=== PATIENT | female | born 1995 | race Caucasian/White ===

== ENCOUNTER 2018-04-14 12:14 | Observation (INO) ==
--- NOTE | 2018-04-14 12:26 | Emergency Department Note ---
Disposition Clinical Impression: Influenza Community acquired pneumonia Qualifiers: Laterality: unspecified laterality Qualified Code(s): J18.9 - Pneumonia, unspecified organism Disposition: Admitted As Inpatient Condition: Good Referrals: NONE,PCP [Non-Partnered Physician] - Forms: ED Satisfaction Letter SOB HPI - General Chief Complaint: ED Shortness of Breath/Dyspnea Stated Complaint: difficulty in breathing Source: patient, EMS Mode of arrival: EMS Limitations: no limitations Nursing Notes Reviewed: Yes Vital Signs Reviewed: Yes - History of Present Illness Patient presents to the ED via EMS complaining of worsening shortness of breath, cough, congestion and fever. Patient states she was originally seen here on the third for similar symptoms and was diagnosed with a URI. She was prescribed Augmentin which she has been taking. She also had some fever and chills and some chest and rib pain yesterday and returned to the ED. States that she had a chest x-ray and chest CT performed and was told she possibly had pneumonia. Her daughter was also just diagnosed with the flu so she was started on Tamiflu yesterday. She had her first dose of Tamiflu in the ER last night but has not been able to take her Augmentin her Tamiflu today because she states every time she tries to drink something she has a coughing spell and will have posttussive emesis. She is not had any vomiting outside of the coughing spells. States she has been drinking but has not been eating anything due to lack of appetite. She states she has had a fever at home doses high as 102.7 this morning taken orally. She did not take any medication for the fever but did take a cool bath. She states her cough is been dry. She denies any sore throat, nasal congestion or rhinorrhea. No abdominal pain or diarrhea. No rash. She is recently been exposed to both her daughter and niece who have the flu currently. She typically smokes a half a pack per day but states she has not smoked in the past 2 days due to her symptoms. She denies any alcohol or drug use. No chronic respiratory problems although she states she does get bronchitis frequently. - Related Data Home Medications Medication Instructions Recorded Confirmed Ibuprofen [Motrin] 800 mg PO Q8HR PRN 01/26/16 04/13/18 HYDROcodone/Acet 10/325 mg [[place] 1 tab PO Q6HR PRN 07/19/16 04/13/18 10-325 mg] SUMAtriptan succinate [Imitrex] 50 mg PO Q2H 02/11/17 04/13/18 Previous Rx's Medication Instructions Recorded Amoxicillin/Clavulanate [Augmentin] 875 mg PO BIDWM #20 tablet 04/11/18 Pseudoephedrine/Acetaminophen 1 each PO BID #20 tablet 04/11/18 [Nexafed Sinus Press-Pain Tab] Oseltamivir [Tamiflu] 75 mg PO BID #10 capsule 04/13/18 Allergies Allergy/AdvReac Type Severity Reaction Status Date / Time guaifenesin [From Mucinex] AdvReac Hives Verified 04/14/18 12:17 Constitutional: Reports: as per HPI, fever, chills. Denies: weakness, weight change Eyes: Denies: eye pain, eye discharge, vision change ENT ED: Reports: congestion. Denies: ear pain, throat pain, dental pain, hearing loss, epistaxis, dysphagia Cardiovascular: Denies: chest pain, palpitations, dyspnea on exertion, edema, syncope Respiratory: Reports: cough, dyspnea. Denies: wheezes, hemoptysis, stridor Gastrointestinal: Reports: vomiting (post-tussive). Denies: abdominal pain, nausea, diarrhea, constipation, hematemesis, melena, hematochezia Genitourinary: Denies: dysuria, frequency, hematuria, discharge Musculoskeletal: Denies: back pain, neck pain, arthralgia, myalgia Integumentary: Denies: rash, abrasion, lesions Neurological: Denies: headache, weakness, numbness, paresthesias, confusion, abnormal gait, vertigo Psychiatric: Denies: anxiety, depression, suicidal thoughts, homicidal thoughts, auditory hallucinations, visual hallucinations Endocrine: Denies: fatigue Hematological/Lymphatic: Denies: easy bleeding, easy bruising Allergic/Immunologic: Denies: facial swelling, urticaria Past Medical History - Past Medical History Medical history: Reports: GERD, migraine, other Psychiatric history: Reports: depression [employer] history: Reports: spontaneous - Social History Smoking Status: Current every day smoker Smokeless Tobacco Status: No Alcohol use: Reports: rarely Drug use: Reports: none Physical Exam - General Limitations: no limitations General appearance: alert, in no apparent distress, obese - Head Head exam: atraumatic, normocephalic, normal inspection - Eye Eye exam: Present: normal appearance, PERRL, EOMI - ENT ENT exam: normal exam, normal oropharynx, mucous membranes dry, TM's normal bilaterally, normal external ear exam - Neck Neck exam: Present: normal inspection, full ROM, trachea midline - Chest Chest inspection: Present: normal inspection, symmetric chest wall rise - Respiratory Respiratory exam: Present: wheezes (scattered). Absent: respiratory distress - Expanded Respiratory Exam Location: decreased breath sounds: Left, Lower, Right - Cardiovascular Cardiovascular exam: Present: regular rate, normal rhythm, normal heart sounds - Abdominal Exam Abdominal exam: Present: soft, Non-Tender. Absent: tenderness, distention, guarding, rebound, rigidity - Extremities Exam Extremities exam: Present: normal inspection, full ROM. Absent: tenderness, p edal edema - Neurological Exam Neurological exam: Present: alert, oriented X3 - Psychiatric Psychiatric exam: Present: normal affect, normal mood - Skin Skin exam: Present: warm, dry, intact, normal color Course Course Narrative: She presents to the ED complaining of shortness of breath, worsening cough and posttussive emesis as well as persistent fever. On arrival she has a low-grade fever of 100. She is mildly tachycardic and tachypnea. She is 92% on 2 L of oxygen. She was taken off O2 and saturations dropped to 88. Given that she does have some scattered wheezing and diminished breath sounds will given nebulizer treatment in addition to repeating her chest x-ray and lab work as review of records shows she only had a BMP performed yesterday to verify kidney function could tolerate contrast after having elevated d-dimer reading that was presumably obtained because of the chest wall pain. Her chest x-ray yesterday showed a left lower lobe pneumonia. CT scan the chest and not show any PE but did show scattered opacities that could represent multifocal pneumonia. Will also obtain flu swab to verify patient needs to continue with Tamiflu. Given the patient is hypoxic on room air she will likely require admission for continued antibiotics and likely respiratory treatments for her pneumonia. - Reevaluation(s) Reevaluation #1: Patient did test positive for influenza a. Laboratory studies did not show any leukocytosis and lactic acid was normal but chest x-ray shows worsening opacity in the left lower lobe and new opacity in the right middle lobe concerning for pneumonitis. Given these findings along with influenza and the mild hypoxia she will need admission for continued treatment and she is in agreement. She has been given a dose of Tamiflu and IV Levaquin here in the ED along with ibuprofen for her headache and fever and cough syrup as well as gentle IV fluids. Will contact the hospitalist on-call regarding admission. Time: 13:45 Reevaluation #2: I spoke to the hospitalist on-call call, Dr. Barnett, who has agreed to accept the patient. Time: 13:53 Vital Signs Temperature 100 F H 04/14/18 12:18 Pulse Rate 116 04/14/18 12:18 Respiratory Rate 16 04/14/18 12:18 Blood Pressure 135/74 04/14/18 12:18 O2 Sat by Pulse Oximetry 88 04/14/18 12:18 Temperature 100 F H 04/14/18 12:18 Pulse Rate 103 04/14/18 13:10 Respiratory Rate 18 04/14/18 13:10 Blood Pressure 103/74 04/14/18 13:10 O2 Sat by Pulse Oximetry 91 04/14/18 13:10 Oxygen Delivery Oxygen Delivery Nasal Cannula Shortness of Breath/Dyspnea - Differential Diagnosis Likely: pneumonia (versus URI, influenza) - Medical Records Medical records reviewed: Yes I reviewed the patient's medical records. - Lab Data Lab results reviewed: Yes I reviewed the patient's lab results. Result diagrams: 04/14/18 12:44 04/14/18 12:44 Lab Results 04/14/18 04/14/18 04/14/18 Range/Units 12:44 12:44 12:44 WBC 5.8 (4.3-11.1) K/mcL RBC 4.24 (3.82-4.97) M/mcL Hgb 13.0 (11.5-15.4) g/dL Hct 38.8 (35.3-44.9) % MCV 91.5 (83.0-100.0) fL MCH 30.7 (28.0-33.3) pg MCHC 33.5 (31.6-35.5) g/dL RDW 12.4 (11.5-14.5) % Plt Count 235 (140-400) K/mcL MPV 9.3 L (9.4-12.4) fL Immature Gran % 0.2 (0-4) % Seg Neutrophils % 61.6 % Lymphocytes % 29.3 % Monocytes % 6.2 % Eosinophils % 2.2 % Basophils % 0.5 % Neutrophils # 3.6 (1.6-8.9) K/mcL Lymphocytes # 1.7 (0.6-4.6) K/mcL Monocytes # 0.4 (0.0-1.3) K/mcL Eosinophils # 0.1 (0.0-0.6) K/mcL Basophils # 0.0 (0.0-0.2) K/mcL Sodium 138 (136-145) mEq/L Potassium 3.9 (3.5-5.1) mEq/L Chloride 105 (98-107) mEq/L Carbon Dioxide 28 (23-29) mEq/L BUN 9 (6-20) mg/dL Creatinine 0.97 (0.60-1.20) mg/dL Est GFR ( Amer) > 60 (> 60) Est GFR (Non-Af Amer) > 60 (> 60) BUN/Creatinine Ratio 9 (6-26) Glucose 107 H (70-105) mg/dL Calculated Osmolality 285 (280-300) Lactic Acid 0.7 (0.5-2.2) mmol/L Calcium 8.7 (8.6-10.3) mg/dL - Radiology Data Radiology results reviewed: Yes I reviewed the patient's radiology results. ITS Impressions Chest X-Ray 04/14/18 12:27 IMPRESSION: Findings right infrahilar lung and lateral lower left lung concerning for pneumonitis. D/ / Jacoby Bro / Jacoby Bro Interpreting Provider: Jacoby Bro
[2018-04-14] MEDS ORDERED: Ipratropium/Albuterol Neb 3 ML IH ONE (12:27)
[2018-04-14] MEDS ORDERED: 0.9 % Sodium Chloride 1,000 ML IVC ONE (12:36)
[2018-04-14 12:52] LABS: Basophils % 0.5 %; Eosinophils # 0.1 K/mcL (0.0-0.6); Eosinophils % 2.2 %; Hematocrit 38.8 % (35.3-44.9); Immature Granulocytes % 0.2 % (0-4); Lymphocytes # 1.7 K/mcL (0.6-4.6); Lymphocytes % 29.3 %; Mean Corpuscular HGB Conc 33.5 g/dL (31.6-35.5); Mean Corpuscular Hemoglobin 30.7 pg (28.0-33.3); Mean Corpuscular Volume 91.5 fL (83.0-100.0); Mean Platelet Volume 9.3 fL (9.4-12.4); Monocytes # 0.4 K/mcL (0.0-1.3); Monocytes % 6.2 %; Neutrophils # 3.6 K/mcL (1.6-8.9); Platelet Count 235 K/mcL (140-400); Red Blood Count 4.24 M/mcL (3.82-4.97); Red Cell Distribution Width 12.4 % (11.5-14.5); Segmented Neutrophils % 61.6 %
[2018-04-14] MEDS ORDERED: Promethazine/Codeine Oral Sryup 5 ML UDC PO ONE (13:16)
[2018-04-14 13:31] LABS: BUN/Creatinine Ratio 9 (6-26); Blood Urea Nitrogen 9 mg/dL (6-20); Calcium 8.7 mg/dL (8.6-10.3); Carbon Dioxide 28 mEq/L (23-29); Chloride 105 mEq/L (98-107); Glucose 107 mg/dL (70-105); Osmolality,Calculated 285 (280-300); Potassium 3.9 mEq/L (3.5-5.1); Sodium 138 mEq/L (136-145); eGFR For Non-African Americans > 60 (> 60)
[2018-04-14] MEDS ORDERED: Ibuprofen 800 MG TABLET PO ONE (13:43)
[2018-04-14] MEDS ORDERED: Levofloxacin 750 MG/150 ML 750 MG/150 ML BAG IVPB ONE (13:47)
[2018-04-14] MEDS ORDERED: Ibuprofen 800 MG TABLET PO PRN (14:42)
--- NOTE | 2018-04-14 17:39 | Internal Med History&Physical ---
Date of Encounter: 04/14/18 Time of Encounter: 17:05 Assessment and Plan (1) Influenza Current visit: Yes Status: Acute She will continue Tamiflu. (2) Community acquired pneumonia Current visit: Yes Status: Acute She has bilateral pneumonia. She will be given Rocephin and doxycycline with lactobacillus. Room air oximetry will be checked prior to discharge. Qualifiers: Laterality: unspecified laterality Qualified Code(s): J18.9 - Pneumonia, unspecified organism Internal Medicine - H&P: HPI Chief complaint: Dyspnea and cough Admitted From: Emergency Dept Plans for Post Hospital Care: Home History of present illness: Ms. Duran is a 22 year old female who came to emergency room complaining of dyspnea and cough onset 3-4 days ago. She was seen in the emergency room and diagnosed with URI and received a prescription for Augmentin. She reports she she did not feel improved on the medication so came back to emergency room yesterday. She was felt likely to have influenza since her daughter and niece had been diagnosed with influenza earlier in the day. Chest CTA was ordered since d-dimer was slightly elevated at 556. It showed multifocal patchy groundglass opacities in all 5 lobes. She was started on Tamiflu and was told to continue the Augmentin and other medications from the previous emergency room visit. She states she followed these instructions but developed fevers as high as 102.7 earlier today so came back to emergency room for another evaluation. She was confirmed to have influenza A on rapid test and was admitted to [facility] floor for ongoing care needs. She reports her cough is minimally productive. She denies hemoptysis. Respiratory history is significant for having smoked since age 17. She does not have documented chronic lung disease. Past Med Surg Social Fam HX - Past Medical History Medical history: GERD, migraine, other Additional medical history: IRREGULAR/FAST HEART RATE Psychiatric history: depression - Past Surgical History Additional surgical history: chronic back pain - Social History Smoking Status: Current every day smoker Smokeless Tobacco Status: No Alcohol use: rarely Drug use: none Internal Medicine - H&P: Meds Ibuprofen [Motrin] 800 mg PO Q8HR PRN 01/26/16 [History] HYDROcodone/Acet 10/325 mg [[place] 10-325 mg] 1 tab PO Q6HR PRN 07/19/16 [History] SUMAtriptan succinate [Imitrex] 50 mg PO Q2H 02/11/17 [History] Amoxicillin/Clavulanate [Augmentin] 875 mg PO BIDWM #20 tablet 04/11/18 [Rx] Pseudoephedrine/Acetaminophen [Nexafed Sinus Press-Pain Tab] 1 each PO BID #20 tablet 04/11/18 [Rx] Oseltamivir [Tamiflu] 75 mg PO BID #10 capsule 04/13/18 [Rx] Ventolin Hfa 1 - 2 inh IH Q4-6H PRN 04/14/18 [History] Allergy/AdvReac Type Severity Reaction Status Date / Time guaifenesin [From Mucinex] AdvReac Hives Verified 04/14/18 12:17 All Systems PM: A 10-system review of systems was performed and is negative for pertinent findings except as documented above in the HPI. Review of systems: Gen.: She states her weight has been stable the past few months Cardiovascular: She was told she had "irregular heart rate" approximately 2 years ago but did not receive medication or know the specific diagnosis. She denies chest pain on exertion hypertension DVT or pulmonary embolus Respiratory: As per history of present illness GI: She has had cholecystectomy. She denies disorders of her liver or exocrine pancreas : She denies hematuria dysuria or kidney stones Neurologic: She has history of migraine headaches. She denies seizures or large distribution strokes. Endocrine: She denies diabetes thyroid disease or hyperlipidemia Hematology/oncology: She denies blood disorders cancers or anemia Psychiatric: She has history of depression but does not take medication at this time. She denies other mental health diagnoses. [place] skeletal: She has left patellar lateral migration. She reports 4 herniated discs in her back. She denies other bone joint or muscle disorders. - Constitutional Vitals: Temp Pulse Resp BP Pulse Ox 100 F H 103 18 103/74 91 04/14/18 12:18 04/14/18 13:10 04/14/18 13:10 04/14/18 13:10 04/14/18 13:10 Exam: Gen.: She is a well-developed obese female lying in bed who appears slightly dyspneic. She is wearing oxygen by nasal cannula. HEENT: Head is atraumatic and normocephalic. Eyes: EOMI. There is no scleral icterus. Mouth: Mucosa is moist. Neck: Supple and nontender. There is no thyromegaly or adenopathy noted. Heart: Regular without murmurs gallops or ectopics Lungs: No wheezes, egophony or crackles are heard. Abdomen: Soft and nontender. No masses or guarding are noted. Extremities: There is no cyanosis edema or clubbing noted. Dorsalis pedis and posterior tibial pulses are 1-2 over 2 bilaterally. Neurologic: Mental status: She is talkative and a good historian. Cranial nerves: Smile is symmetric. Forehead wrinkles bilaterally. Tongue protrudes midline. EOMI. Motor: There is no pronator drift. Cerebellar: Finger to nose is intact bilaterally. Skin: Warm and dry Internal Med - H&P Results - Labs CBC & Chem 7: 04/14/18 12:44 04/14/18 12:44 Labs: Short CBC 04/14/18 Range/Units 12:44 WBC 5.8 (4.3-11.1) K/mcL Hgb 13.0 (11.5-15.4) g/dL Hct 38.8 (35.3-44.9) % Plt Count 235 (140-400) K/mcL Neutrophils # 3.6 (1.6-8.9) K/mcL BMP 04/14/18 12:44 Sodium 138 Potassium 3.9 Chloride 105 Carbon Dioxide 28 BUN 9 Creatinine 0.97 Glucose 107 H Calcium 8.7 - Impressions ITS Impressions Chest X-Ray 04/14/18 12:27 IMPRESSION: Findings right infrahilar lung and lateral lower left lung concerning for pneumonitis. D/ / Jacoby Bro / Jacoby Bro Interpreting Provider: Jacoby Bro
[2018-04-14] MEDS: cefTRIAXone 1,000 MG in Water for inj. (sterile) 20 ML 10 ML IVP SCH (18:08)
[2018-04-14] MEDS: Doxycycline 100 MG in 0.9 % Sodium Chloride Mini Bag 100 ML IVPB SCH (18:08)
[2018-04-14] MEDS: Lactobacillus 1 EACH CAP.SPRINK PO SCH (20:10)
[2018-04-14] MEDS ORDERED: Mag Hydrox/Al Hydrox/Simeth 30 ML UDC PO PRN (21:40)
[2018-04-14] MEDS ORDERED: Famotidine 20 MG TABLET PO PRN (21:41)
[2018-04-15] MEDS ORDERED: Acetaminophen 325 MG TABLET PO PRN
[2018-04-15] MEDS: Ondansetron 4 MG/2 ML VIAL IVP PRN ×2 (00:14→08:02)
[2018-04-15 05:58] LABS: Basophils % 0.3 %; Eosinophils # 0.4 K/mcL (0.0-0.6); Eosinophils % 5.3 %; Hematocrit 36.2 % (35.3-44.9); Hemoglobin 12.1 g/dL (11.5-15.4); Immature Granulocytes % 0.1 % (0-4); Lymphocytes # 2.6 K/mcL (0.6-4.6); Lymphocytes % 38.3 %; Mean Corpuscular HGB Conc 33.4 g/dL (31.6-35.5); Mean Corpuscular Hemoglobin 30.6 pg (28.0-33.3); Mean Corpuscular Volume 91.4 fL (83.0-100.0); Mean Platelet Volume 10.9 fL (9.4-12.4); Monocytes # 0.3 K/mcL (0.0-1.3); Monocytes % 4.9 %; Neutrophils # 3.4 K/mcL (1.6-8.9); Platelet Count 146 K/mcL (140-400); Red Blood Count 3.96 M/mcL (3.82-4.97); Red Cell Distribution Width 12.2 % (11.5-14.5); Segmented Neutrophils % 51.1 %
[2018-04-15] MEDS: Doxycycline 100 MG in 0.9 % Sodium Chloride Mini Bag 100 ML IVPB SCH (06:18)
[2018-04-15 06:38] LABS: BUN/Creatinine Ratio 12 (6-26); Blood Urea Nitrogen 10 mg/dL (6-20); Calcium 8.7 mg/dL (8.6-10.3); Carbon Dioxide 24 mEq/L (23-29); Chloride 106 mEq/L (98-107); Glucose 103 mg/dL (70-105); Osmolality,Calculated 285 (280-300); Potassium 4.1 mEq/L (3.5-5.1); Sodium 138 mEq/L (136-145); eGFR For Non-African Americans > 60 (> 60)
[2018-04-15] MEDS: cefTRIAXone 1,000 MG in Water for inj. (sterile) 20 ML 10 ML IVP SCH (08:01)
[2018-04-15] MEDS: Lactobacillus 1 EACH CAP.SPRINK PO SCH (08:02)
[2018-04-15 10:56] VITALS: BP 112/77
--- NOTE | 2018-04-15 14:37 | Discharge Summary ---
Orders not resulted at time of discharge: Pending orders 04/14/18 12:53 Culture,Blood [] Stat Date of Encounter: 04/15/18 Time of Encounter: 14:28 - Discharge Diagnosis (1) Influenza Priority: Primary Status: Acute (2) Community acquired pneumonia Priority: Secondary Status: Acute Qualifiers: Laterality: unspecified laterality Qualified Code(s): J18.9 - Pneumonia, unspecified organism Hospital course: Ms. Duran is a 22 year old female who came to emergency room complaining of dyspnea and cough onset 3-4 days ago. She was seen in the emergency room and diagnosed with URI and received a prescription for Augmentin. She reports she she did not feel improved on the medication so came back to emergency room yesterday. She was felt likely to have influenza since her daughter and niece had been diagnosed with influenza earlier in the day. Chest CTA was ordered since d-dimer was slightly elevated at 556. It showed multifocal patchy groundglass opacities in all 5 lobes. She was started on Tamiflu and was told to continue the Augmentin and other medications from the previous emergency room visit. She states she followed these instructions but developed fevers as high as 102.7 earlier today so came back to emergency room for another evaluation. She was confirmed to have influenza A on rapid test and was admitted to [facility] for ongoing care needs. Initial orders were written by the emergency room physician. I saw her on April 14 and performed the history and physical. She was started on Rocephin and doxycycline in emergency room. Tamiflu was continued. When I saw her on April 15 she felt significantly improved and stable for discharge home. She will continue with Tamiflu to complete a 5 day course. She will be given doxycycline for 3 additional days at discharge. She will follow with her PCP Kristel Bolton CNP within 1 week. Room air oximetry will be checked on 6 minute walk prior to discharge. I encouraged her to become a nonsmoker. She can return to work 04/19/2018. - Time Spent with Patient Total time spent providing and/or coordinating discharge services: - Discharge Medications Prescriptions: Doxycycline 100 mg PO BID #6 capsule Lactobacillus [Culturelle] 1 each PO BID #6 cap.[email or web address] Home Medications: Ibuprofen [Motrin] 800 mg PO Q8HR PRN 01/26/16 [History] HYDROcodone/Acet 10/325 mg [[place] 10-325 mg] 1 tab PO Q6HR PRN 07/19/16 [History] SUMAtriptan succinate [Imitrex] 50 mg PO Q2H 02/11/17 [History] Pseudoephedrine/Acetaminophen [Nexafed Sinus Press-Pain Tab] 1 each PO BID #20 tablet 04/11/18 [Rx] Oseltamivir [Tamiflu] 75 mg PO BID #10 capsule 04/13/18 [Rx] Ventolin Hfa 1 - 2 inh IH Q4-6H PRN 04/14/18 [History] Doxycycline 100 mg PO BID #6 capsule 04/15/18 [Rx] Lactobacillus [Culturelle] 1 each PO BID #6 cap.sprink 04/15/18 [Rx] Allergies/Adverse Reactions: Allergy/AdvReac Type Severity Reaction Status Date / Time guaifenesin [From Mucinex] AdvReac Hives Verified 04/14/18 12:17 Date of admission: 04/14/18 13:58 Primary care physician: Kristel Bolton CNP - Constitutional Vitals: Temp Pulse Resp BP Pulse Ox 98.1 F 83 18 112/77 94 04/15/18 10:52 04/15/18 10:52 04/15/18 10:52 04/15/18 10:52 04/15/18 10:52 - Patient Status Disposition: Home, Self-Care Condition: Good - Discharge Instructions Follow Up With: Kristel Bolton CNP [Primary Care Provider] - 1 week - Diet and Activity Activity: resume usual activities as tolerated Diet: advance to your usual diet
== END 2018-04-15 17:30 | disposition home or self-care (01) ==
LOC: INPPIK 12:14 → EMEROOPIK 12:14 → INPPIK 14:19
PROVIDERS: ADMIT Internal Medicine; ATTEND Internal Medicine